=== PATIENT | male | born 1990 | race Caucasian/White ===

== ENCOUNTER 2020-12-24 17:54 | Emergency (ER) | payer MEDICAID ==
[~2020-12-24] VITALS: Ht 172.7 cm; Wt 137.0 kg
[2020-12-24] MEDS ORDERED: IBUPROFEN 600MG TABLET PO ONE (22:30)
[2020-12-24] MEDS ORDERED: IBUP-2028 MT (22:35)
[2020-12-24 23:43] VITALS: BP 123/83
== END 2020-12-24 23:49 | disposition home or self-care (01) ==
LOC: ER 17:54
DX: R07.81 Pleurodynia (principal); V23.4XXA Motorcycle driver injured in collision with car, pick-up truck or van in traffic accident, initial encounter; Y93.89 Activity, other specified; Y92.488 Other paved roadways as the place of occurrence of the external cause
CPT/HCPCS: 71045; 71101; 99284